=== PATIENT | female | born 1990 ===

== ENCOUNTER → 2019-01-21 | Outpatient (REF) ==
[~2019-01-21] MED LIST: AMOXICILLIN500 MG PO; AUGMENTIN875TAB PO; CIPROFLOXACN500 MG PO; CRANBERRY1 TA1 PO; IBUPROFEN600 MG PO; LORTAB 7.57.5 MG PO; MULTI PO; ORTHO TRICYCLINE PO; PRENATAL1 TA1; PRILOSEC40 MG PO; PYRIDIUM200 MG PO; SMZ-TMP DS1 TAB PO; TRI-SPRINTEC PO
[2019-01-21 10:35] LABS: CHOLESTEROL HDL RATIO 3.2 (<4.4 (CALC))
== END | disposition home or self-care (01) | DRG 951 ==
LOC: LAB 08:57
PROVIDERS: ATTEND Family Medicine
DX: Z02.6 Encounter for examination for insurance purposes (principal)